=== PATIENT | male | born 1995 | race Caucasian/White ===

== ENCOUNTER 2023-11-28 22:19 | Emergency (ER) | payer OTHER ==
[~2023-11-28] VITALS: Ht 180.3 cm; Wt 153.0 kg
[2023-11-28 22:41] VITALS: TEMP 98.3; O2SAT 98
[2023-11-28] MEDS ORDERED: IBUP-2030 MT (23:39)
[2023-11-28 23:52] VITALS: BP 155/81; PULSE 86; RESP 18
== END 2023-11-28 23:53 | disposition home or self-care (01) ==
LOC: ER 22:19
DX: M25.511 Pain in right shoulder (principal)
CPT/HCPCS: 73030; 99283